=== PATIENT | female | born 1970 | race Caucasian/White ===

== ENCOUNTER 2022-12-21 07:27 | Day surgery (SDC) | payer OTHER ==
[~2022-12-21] VITALS: Ht 160 cm; Wt 76.2 kg
[2022-12-21] MEDS ORDERED: fentaNYL citrate 0.05 MG/ML - 50mL vial IV ONE (08:00)
[2022-12-21] MEDS ORDERED: ONDANSETRON 4 MG/2 ML VIAL ONE ×2 (08:00→09:08)
[2022-12-21] MEDS ORDERED: KETOROLAC 30 MG/ML VIAL ONE ×2 (08:00→09:08)
[2022-12-21] MEDS ORDERED: PROPOFOL 200 MG/20 ML VIAL IV ONE ×3 (08:00→09:11)
[2022-12-21] MEDS ORDERED: ceFAZolin 1,000 MG VIAL ONE (08:00)
[2022-12-21] MEDS ORDERED: LIDOCAINE MPF 1% 10 ML ONE (08:40)
[2022-12-21] MEDS ORDERED: BUPIVACAINE-MPF/EPI 0.25% 30 ML VIAL INJ ONE (08:40)
[2022-12-21] MEDS ORDERED: LACTATED RINGERS 1,000 ML IV SCH (09:50)
[2022-12-21] MEDS ORDERED: HYDROmorphone 1 MG/ML AMP IVP PRN ×2 (09:50→09:55)
[2022-12-21] MEDS ORDERED: LABETALOL 20 MG/4 ML VIAL IVP PRN (09:51)
[2022-12-21] MEDS ORDERED: METOCLOPRAMIDE 10 MG/2 ML INJ VIAL IVP PRN (09:51)
[2022-12-21] MEDS ORDERED: hydrALAZINE 20 MG/ML VIAL IVP PRN (09:51)
[2022-12-21] MEDS ORDERED: MORPHINE SULFATE 4 MG/ML SYR IV PRN (09:55)
[2022-12-21] MEDS ORDERED: ONDANSETRON 4 MG/2 ML VIAL IV PRN (09:55)
[2022-12-21] MEDS ORDERED: MORPHINE SULFATE 2 MG/ML SYR IVP PRN (09:55)
== END 2022-12-21 11:00 | disposition home or self-care (01) ==
LOC: MDS 07:27 → MMU 07:28 → MDS 11:00
PROVIDERS: ATTEND Surgery
DX: C50.911 Malignant neoplasm of unspecified site of right female breast (principal); F31.9 Bipolar disorder, unspecified; Z79.899 Other long term (current) drug therapy; Z20.822 Contact with and (suspected) exposure to COVID-19
CPT/HCPCS: 36415; 36561; 71045; 76937; 77001; 86886; 86900; 86901; 87426; 93005; C1788; J0690; J1644; J1885; J2001; J2405; J2704; J3010; J3490; J7060; J7120; Q0092